=== PATIENT | female | born 1975 | race Caucasian/White ===

== ENCOUNTER 2024-06-04 13:02 | Inpatient (IN) | payer OTHER ==
[2024-06-04 13:48] VITALS: BMI 27.6
[2024-06-04] MEDS ORDERED: POLYETHYLENE GLYCOL (HEALTHYLAX) 3350 17 GM PACKET PO PRN (13:50)
[2024-06-04] MEDS ORDERED: ACETAMINOPHEN 325 MG TABLET (FP) PO PRN (13:50)
[2024-06-04] MEDS ORDERED: NALOXONE (NARCAN) HCL 4 MG/0.1 ML SPRAY NS PRN (13:50)
[2024-06-04] MEDS ORDERED: LOPERAMIDE HCL 2 MG CAPSULE PO PRN (13:50)
[2024-06-04] MEDS ORDERED: guaiFENesin 600 MG TABLET.ER (FP) PO PRN (13:50)
[2024-06-04] MEDS ORDERED: LORazepam 1 MG TABLET PO PRN (13:50)
[2024-06-04] MEDS ORDERED: BENZOCAINE/MENTHOL (CHLORASEPTIC ) LOZENGE MM PRN (13:50)
[2024-06-04] MEDS ORDERED: BENZONATATE 200 MG CAPSULE PO PRN (13:50)
[2024-06-04] MEDS: PRENATAL VITAMINS W/ FOLIC ACID TABLET (FP) PO SCH (18:26)
[2024-06-04] MEDS: LORazepam 2 MG TABLET PO SCH (18:26)
[2024-06-04] MEDS: IBUPROFEN 600 MG TABLET (FP) PO PRN (18:34)
[2024-06-04] MEDS: ONDANSETRON *ODT* 4 MG TABLET SL PRN (18:35)
[2024-06-04] MEDS: hydrOXYzine PAMOATE 25 MG CAPSULE (FP) PO PRN (21:20)
[2024-06-04] MEDS: MELATONIN 5 MG TABLETS PO SCH (22:31)
[2024-06-04] MEDS: THIAMINE 100 MG TABLET PO SCH (22:31)
[2024-06-05] MEDS: DICYCLOMINE HCL 10 MG CAPSULE PO PRN (01:02)
[2024-06-05] MEDS: METHOCARBAMOL 500 MG TABLET PO PRN (10:33)
[2024-06-05 11:33] LABS: HEMOGLOBIN 11.8 GM/dL (10.7-15.3); MCH 29.6 pg (25.7-33.7); MCHC 31.8 g/dl (32.0-36.0); MEAN CELL VOLUME 93.1 fl (80-96); MEAN PLT VOLUME 9.9 fl (7.5-11.1); PLATELET COUNT 120 10^3/uL (134-434); RBC 3.97 M/mm3 (3.60-5.2); RDW 19.9 % (11.6-15.6); WHITE BLOOD COUNT 4.8 K/mm3 (4.0-10.0)
[2024-06-05 11:35] LABS: POTASSIUM 3.5 mmol/L (3.5-5.1)
[2024-06-05 11:38] LABS: CALCIUM 8.4 mg/dL (8.5-10.1)
[2024-06-05 11:42] LABS: CREATININE 0.8 mg/dL (0.55-1.3)
[2024-06-05 11:45] LABS: BILIRUBIN,TOTAL 1.8 mg/dL (0.2-1)
[2024-06-05 11:47] LABS: TOT PROT 6.8 g/dl (6.4-8.2)
[2024-06-05] MEDS ORDERED: ALBUTEROL SO4 HFA INHALER IH PRN (15:34)
[2024-06-05] MEDS ORDERED: PATIENT'S OWN MEDICATION (NON-FORMULARY) (Tizanidine Hcl 4 MG Tablet) PO PRN (15:56)
[2024-06-05] MEDS: FUROSEMIDE 40 MG TABLET (FP) PO SCH (16:06)
[2024-06-05] MEDS: diazePAM 5 MG TABLET PO SCH (17:46)
[2024-06-05] MEDS: ESCITALOPRAM OXALATE 10 MG TABLET PO SCH (17:46)
[2024-06-05] MEDS: LACTULOSE 20 GM/30 ML UDC (FOR ORAL USE ONLY) PO SCH (17:47)
[2024-06-05] MEDS: CycloBENZAprine HCL 10 MG TABLET (FP) PO PRN (22:29)
[2024-06-06] MEDS ORDERED: LORazepam 1 MG TABLET PO SCH (05:00)
[2024-06-06] MEDS: diazePAM 5 MG TABLET PO SCH (05:54)
[2024-06-06] MEDS: SPIRONOLACTONE 25 MG TABLET PO SCH (09:48)
[2024-06-06] MEDS: PANTOPRAZOLE 40 MG TABLET PO SCH (09:50)
[2024-06-06] MEDS: MAGNESIUM HYDROX 2400MG/30ML ORAL SUSPENSION 30 ML CUP PO PRN (10:36)
[2024-06-06] MEDS: diazePAM 5 MG TABLET PO PRN (17:46)
[2024-06-06] MEDS: BISMUTH SUBSALICYLATE 524 MG/30 ML PO PRN (17:48)
[2024-06-06] MEDS: MAG HYDROX/AL HYDROX/SIMETH 30 ML UNIT-DOSE CUP PO PRN (19:43)
[2024-06-07] MEDS ORDERED: LORazepam 0.5 MG TABLET PO PRN
[2024-06-07] MEDS ORDERED: LORazepam 0.5 MG TABLET PO SCH (05:00)
[2024-06-07] MEDS: diazePAM 5 MG TABLET PO SCH (06:10)
[2024-06-07 11:41] LABS: BILIRUBIN,TOTAL 1.3 mg/dL (0.2-1)
[2024-06-07] MEDS ORDERED: TRIMETHOBENZAMIDE HCL 200MG/2ML INJ IM PRN (12:00)
[2024-06-07] MEDS: SUCRALFATE 1 GM TABLET (FP) PO ONE (12:14)
[2024-06-07] MEDS: ACAMPROSATE CALCIUM 333 MG TABLET.DR PO SCH (13:23)
[2024-06-07] MEDS: IBUPROFEN 400 MG TABLET (FP) PO PRN (13:24)
[2024-06-08] MEDS ORDERED: LORazepam 0.5 MG TABLET PO ONE (05:00)
[2024-06-08] MEDS: diazePAM 5 MG TABLET PO ONE (06:16)
[2024-06-08 09:17] VITALS: TEMP 97.6
[2024-06-08 13:00] VITALS: BP 133/93; PULSE 94; RESP 18
== END 2024-06-08 14:07 | disposition home or self-care (01) | DRG 775 ==
LOC: YASAS 13:02 → Y6N 16:37
PROVIDERS: ADMIT Allergy & Immunology; ATTEND Allergy & Immunology
PROC: HZ2ZZZZ Detoxification Services for Substance Abuse Treatment (ICD-10-PCS; principal; 2024-06-04)
DX: F10.230 Alcohol dependence with withdrawal, uncomplicated (principal); F12.20 Cannabis dependence, uncomplicated; F17.210 Nicotine dependence, cigarettes, uncomplicated; F10.282 Alcohol dependence with alcohol-induced sleep disorder; J45.909 Unspecified asthma, uncomplicated; K21.9 Gastro-esophageal reflux disease without esophagitis; M79.7 Fibromyalgia; E27.1 Primary adrenocortical insufficiency; R79.89 Other specified abnormal findings of blood chemistry; R74.01 Elevation of levels of liver transaminase levels; Z86.73 Personal history of transient ischemic attack (TIA), and cerebral infarction without residual deficits
CPT/HCPCS: 36415; 80053; 80305; 80307; 82140; 82247; 84450; 85027; 86780; 93005; 93010; Q0162